=== PATIENT | female | born 2005 | race Caucasian/White ===

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

== ENCOUNTER 2023-02-02 03:55 | Emergency (ER) | payer OTHER ==
[~2023-02-02] VITALS: Ht 157.5 cm; Wt 68.0 kg
--- NOTE | 2023-02-02 04:01 | NUR ---
PT BIBA TO BED 6
[2023-02-02 04:07] VITALS: BP 142/80; PULSE 87; RESP 19; TEMP 97.5; O2SAT 99
[2023-02-02] MEDS ORDERED: ONDANSETRON 4 MG ODT PO ONE (04:10)
[2023-02-02] MEDS ORDERED: KETOROLAC 30 MG/ML VIAL IM ONE (04:10)
[2023-02-02] MEDS ORDERED: DICYCLOMINE HCL LIQUID 20 MG, ALUMINUM HYD/MAG/SIMETHICONE 30 ML, LIDOCAINE VISCOUS 2% ... PO ONE ×3 (04:10)
--- NOTE | 2023-02-02 04:15 | NUR ---
17 Y/O F biba from home c/c with bilateral stabbing ABD pain 10/10 due to eating eating chili x3hrs. pt A&Ox4, skin intact, ambulatory. pt stated she has NV denies diarrhea, headache or SOB. pmh- anxiety
--- NOTE | 2023-02-02 04:23 | NUR ---
PT'S ROOMMATE GEORGE [phone], PT GAVE PERMISSION TO RELEASE INFORMATION.
--- NOTE | 2023-02-02 04:30 | NUR ---
labs collected and sent to lab
[2023-02-02] MEDS ORDERED: ALUMINUM HYD/MAG/SIMETHICONE 30 ML UDC ONE (04:33)
[2023-02-02] MEDS ORDERED: DICYCLOMINE HCL LIQUID 10 MG/5 ML UDC ONE (04:33)
[2023-02-02 04:57] LABS: BASOPHILS % (AUTO) 0.3 % (0.0-2.0); EOSINOPHILS % (AUTO) 0.1 % (0.0-4.0); HEMATOCRIT 41.2 % (36-48); HEMOGLOBIN 13.7 g/dL (12.0-16.0); LYMPHOCYTES # (AUTO) 3.4 K/uL (2.5-16.5); MEAN CORPUSCULAR HEMOGLOBIN 27 pg (27-31); MEAN CORPUSCULAR HGB CONC 33 g/dL (33-37); MEAN CORPUSCULAR VOLUME 80.8 fL (80-94); MONOCYTES # (AUTO) 0.7 K/uL (0.8-1.0); MONOCYTES % (AUTO) 5.5 % (1.7-9.3); NEUTROPHILS # (AUTO) 8.1 K/uL (1.8-7.7); NEUTROPHILS % (AUTO) 66.1 % (42.2-75.2); PLATELET COUNT (AUTO) 311 K/uL (140-450); RED CELL DISTRIBUTION WIDTH 13.8 % (11.6-13.7); WHITE BLOOD COUNT (AUTO) 12.2 K/uL (4.5-11.0)
[2023-02-02 05:14] LABS: ALBUMIN 4.2 g/dL (3.4-5.0); ANION GAP 14.2 (8-16); CARBON DIOXIDE 26.2 mmol/L (21-32); POTASSIUM 3.4 mmol/L (3.5-5.1); TOTAL BILIRUBIN 0.6 mg/dL (0.0-1.0)
[2023-02-02] MEDS ORDERED: ONDA-188 PO (05:43)
[2023-02-02] MEDS ORDERED: FAMO-90 PO (05:43)
[2023-02-02] MEDS ORDERED: MAG355OR2 PO (05:43)
--- NOTE | 2023-02-02 05:54 | NUR ---
Patient discharged with v/s stable. Written and verbal after care instructions given and explained. Patient alert, oriented and verbalized understanding of instructions. Ambulatory with by parent. All questions addressed prior to discharge. ID band removed. Patient advised to follow up with PMD. Rx of pepcid, maalox maxium strength and zofran given. Opportunity to ask questions provided and answered.
== END 2023-02-02 05:54 | disposition home or self-care (01) ==
LOC: MED 03:55
DX: K29.70 Gastritis, unspecified, without bleeding (principal); K76.0 Fatty (change of) liver, not elsewhere classified; Z79.899 Other long term (current) drug therapy; Z79.1 Long term (current) use of non-steroidal anti-inflammatories (NSAID)
CPT/HCPCS: 36415; 76705; 80053; 81025; 83690; 85025; 96372; 99285; J1885; Q0092; Q0162

== ENCOUNTER 2024-03-16 12:08 | Emergency (ER) | payer OTHER ==
[~2024-03-16] VITALS: Ht 157.5 cm; Wt 63.5 kg
[~2024-03-16 12:08] MED LIST changes: +FAMO-90 PO; +MAG355OR2 PO; +ONDA-188 PO
[2024-03-16 12:11] VITALS: BP 118/57; PULSE 80; RESP 16; TEMP 97.7; O2SAT 99
[2024-03-16] MEDS ORDERED: ONDA-188 PO (12:54)
[2024-03-16] MEDS ORDERED: FAMO-90 PO (12:54)
[2024-03-16] MEDS ORDERED: MAG355OR2 PO (12:54)
[2024-03-17] MEDS ORDERED: PANT40EC PO (10:26)
== END 2024-03-16 13:01 | disposition home or self-care (01) ==
LOC: MED 12:08
DX: R10.10 Upper abdominal pain, unspecified (principal); R14.0 Abdominal distension (gaseous); Z79.899 Other long term (current) drug therapy
CPT/HCPCS: 99283